=== PATIENT | female | born 1975 | race Caucasian/White ===

== ENCOUNTER → 2017-09-30 | Outpatient (CLI) | payer BC ==
[~2017-09-30] MED LIST: IRON325 MG PO; MOTRIN 600600 MG/TAB PO; PERCOCET 325 MG1 TA2 PO; PRENATAL MVI PO
== END ==
LOC: MC.RAD 07:35
DX: Z12.31 Encounter for screening mammogram for malignant neoplasm of breast (principal)

== ENCOUNTER 2018-10-29 13:48 | Inpatient (IN) | payer BC ==
[~2018-10-29] VITALS: Ht 162.6 cm; Wt 98.2 kg
[2018-10-29] VITALS (399 sets, daily range): BP systolic 120–128; BP diastolic 71–89; PULSE 99–113; TEMP 98.5–99.3; O2SAT 91–100
[2018-10-29 14:11] LABS: BASO # 0.1 (0.0-0.2); BASO % 0.4 % (0.0-2.0); EOS # 0.1 (0.0-0.7); EOS % 0.7 % (0-4.0); GRAN # 13.8 (1.4-6.5); GRAN % 75.9 % (42.2-75.2); LYMPH # 2.6 (1.2-3.4); LYMPH % 14.5 % (20.0-51.0); MEAN CELL VOLUME 77 fl (80.0-100.0); MEAN CORPUSCULAR HGB CONC 31 g/dl (33.0-37.0); MEAN PLATELET VOLUME 8.8 fl (7.4-10.4); MONO # 1.5 (0.1-0.6); MONO % 8.1 % (1.7-9.3); PLATELET COUNT 398 K/mm3 (130-400); RED BLOOD COUNT 4.18 M/mm3 (4.10-5.30); REDCELL DISTRIBUTION WIDTH-CV 14.9 % (11.5-14.5)
[2018-10-29 14:18] LABS: HEMATOCRIT 32.2 % (37.0-47.0); HEMOGLOBIN 9.9 g/dl (12.5-16.0); MEAN CORPUSCULAR HEMOGLOBIN 24 pg (27.0-31.0)
[2018-10-29 14:21] LABS: ALBUMIN 3.9 gm/dL (3.5-5.0); BILIRUBIN,TOTAL 0.4 mg/dL (0.0-1.0); CALCIUM 9.1 mg/dL (8.4-10.2); CREATININE, serum 0.84 (0.52-1.25); POTASSIUM 3.1 mmol/L (3.4-5.0); TOTAL PROTEIN 7.4 gm/dL (6.4-8.2)
[2018-10-29] MEDS ORDERED: HCTZ12.5TAB PO (14:21)
[2018-10-29] MEDS ORDERED: SPRINTEC 35 MCG1 TAB PO (14:21)
[2018-10-29 14:35] LABS: TROPONIN-I 0.075 ng/mL (0.000-0.035)
[2018-10-29 19:17] LABS: TROPONIN-I 6 HR POST INITIAL 0.088 ng/mL (0.000-0.034)
[2018-10-30] VITALS (1006 sets, daily range): BP systolic 113–145; BP diastolic 77–96; PULSE 94–102; TEMP 98.1–99.3; O2SAT 81–100
[2018-10-30 05:02] LABS: BASO % 0.3 % (0.0-2.0); EOS # 0.2 (0.0-0.7); EOS % 1.2 % (0-4.0); GRAN # 7.9 (1.4-6.5); GRAN % 65.3 % (42.2-75.2); LYMPH # 2.7 (1.2-3.4); LYMPH % 22.4 % (20.0-51.0); MEAN CELL VOLUME 77 fl (80.0-100.0); MEAN CORPUSCULAR HGB CONC 30 g/dl (33.0-37.0); MEAN PLATELET VOLUME 8.7 fl (7.4-10.4); MONO # 1.3 (0.1-0.6); MONO % 10.5 % (1.7-9.3); PLATELET COUNT 379 K/mm3 (130-400); RED BLOOD COUNT 3.92 M/mm3 (4.10-5.30); REDCELL DISTRIBUTION WIDTH-CV 15.1 % (11.5-14.5)
[2018-10-30 05:13] LABS: ALBUMIN 3.5 gm/dL (3.5-5.0); BILIRUBIN,TOTAL 0.4 mg/dL (0.0-1.0); CALCIUM 8.6 mg/dL (8.4-10.2); CREATININE, serum 0.75 (0.52-1.25); POTASSIUM 3.5 mmol/L (3.4-5.0)
[2018-10-30 05:15] LABS: HEMATOCRIT 30.3 % (37.0-47.0); HEMOGLOBIN 9.1 g/dl (12.5-16.0); MEAN CORPUSCULAR HEMOGLOBIN 23 pg (27.0-31.0)
[2018-10-31] VITALS (486 sets, daily range): BP systolic 126–131; BP diastolic 64–98; PULSE 84–98; TEMP 97.9–98.1; O2SAT 81–100
[2018-10-31 06:06] LABS: BASO % 0.3 % (0.0-2.0); EOS # 0.3 (0.0-0.7); EOS % 3.3 % (0-4.0); GRAN # 5.8 (1.4-6.5); GRAN % 62.1 % (42.2-75.2); LYMPH # 2.4 (1.2-3.4); LYMPH % 25.2 % (20.0-51.0); MEAN CELL VOLUME 78 fl (80.0-100.0); MEAN CORPUSCULAR HGB CONC 29 g/dl (33.0-37.0); MEAN PLATELET VOLUME 8.5 fl (7.4-10.4); MONO # 0.8 (0.1-0.6); MONO % 8.8 % (1.7-9.3); PLATELET COUNT 366 K/mm3 (130-400); RED BLOOD COUNT 3.85 M/mm3 (4.10-5.30); REDCELL DISTRIBUTION WIDTH-CV 15.1 % (11.5-14.5)
[2018-10-31 06:11] LABS: HEMATOCRIT 30.1 % (37.0-47.0); HEMOGLOBIN 8.8 g/dl (12.5-16.0); MEAN CORPUSCULAR HEMOGLOBIN 23 pg (27.0-31.0)
[2018-10-31 06:24] LABS: POTASSIUM 3.6 mmol/L (3.4-5.0)
[2018-10-31 06:31] LABS: ALBUMIN 3.4 gm/dL (3.5-5.0); BILIRUBIN,TOTAL 0.4 mg/dL (0.0-1.0); CALCIUM 8.4 mg/dL (8.4-10.2); CREATININE, serum 0.77 (0.52-1.25); TOTAL PROTEIN 6.9 gm/dL (6.4-8.2)
[2018-11-01] VITALS: BP 97/46; PULSE 84; TEMP 98.7
[2018-11-01 04:00] VITALS: BP 130/97; PULSE 82; TEMP 98.8
[2018-11-01 05:21] LABS: BASO % 0.3 % (0.0-2.0); EOS # 0.4 (0.0-0.7); EOS % 5.6 % (0-4.0); GRAN # 3.8 (1.4-6.5); GRAN % 54.2 % (42.2-75.2); LYMPH # 2.2 (1.2-3.4); MEAN CELL VOLUME 79 fl (80.0-100.0); MEAN CORPUSCULAR HGB CONC 30 g/dl (33.0-37.0); MEAN PLATELET VOLUME 8.5 fl (7.4-10.4); MONO # 0.6 (0.1-0.6); MONO % 8.5 % (1.7-9.3); PLATELET COUNT 393 K/mm3 (130-400); RED BLOOD COUNT 3.92 M/mm3 (4.10-5.30); REDCELL DISTRIBUTION WIDTH-CV 14.8 % (11.5-14.5); RETIC % 2.5 % (0.5-3.52)
[2018-11-01 05:24] LABS: HEMATOCRIT 30.8 % (37.0-47.0); HEMOGLOBIN 9.1 g/dl (12.5-16.0); MEAN CORPUSCULAR HEMOGLOBIN 23 pg (27.0-31.0)
[2018-11-01 05:37] LABS: CALCIUM 8.7 mg/dL (8.4-10.2); CREATININE, serum 0.74 (0.52-1.25); POTASSIUM 3.6 mmol/L (3.4-5.0)
[2018-11-01 06:28] LABS: IRON,SERUM 26 ug/dL (35-150)
[2018-11-01 06:38] LABS: TOTAL IRON BINDING CAPACITY 406 ug/dL (265-497)
[2018-11-01 07:03] LABS: FERRITIN 14 ng/mL (6-137)
[2018-11-01 09:00] VITALS: BP 128/96; PULSE 87; TEMP 98.5
[2018-11-01 12:00] VITALS: BP 104/48; BP 125/88; PULSE 74; PULSE 83; TEMP 97.8; TEMP 98
[2018-11-01 17:50] VITALS: BP 146/73; PULSE 88; TEMP 98.3
[2018-11-01 20:00] VITALS: BP 154/77; PULSE 79; TEMP 98.2
[2018-11-02] VITALS: BP 128/64; PULSE 87; TEMP 97.7
[2018-11-02 04:00] VITALS: BP 129/78; PULSE 77; TEMP 97.8
[2018-11-02 06:29] LABS: BASO % 0.3 % (0.0-2.0); EOS # 0.5 (0.0-0.7); EOS % 7.2 % (0-4.0); GRAN # 3.4 (1.4-6.5); GRAN % 54.1 % (42.2-75.2); LYMPH # 1.8 (1.2-3.4); LYMPH % 28.4 % (20.0-51.0); MEAN CELL VOLUME 77 fl (80.0-100.0); MEAN CORPUSCULAR HGB CONC 30 g/dl (33.0-37.0); MEAN PLATELET VOLUME 8.7 fl (7.4-10.4); MONO # 0.6 (0.1-0.6); MONO % 9.7 % (1.7-9.3); PLATELET COUNT 383 K/mm3 (130-400); RED BLOOD COUNT 4.12 M/mm3 (4.10-5.30); REDCELL DISTRIBUTION WIDTH-CV 14.6 % (11.5-14.5)
[2018-11-02 06:43] LABS: CALCIUM 8.9 mg/dL (8.4-10.2); CREATININE, serum 0.64 (0.52-1.25); POTASSIUM 4.1 mmol/L (3.4-5.0)
[2018-11-02 06:47] LABS: HEMATOCRIT 31.8 % (37.0-47.0); HEMOGLOBIN 9.5 g/dl (12.5-16.0); MEAN CORPUSCULAR HEMOGLOBIN 23 pg (27.0-31.0)
[2018-11-02] MEDS ORDERED: FERROUS SU325 MG/TAB PO (06:51)
[2018-11-02] MEDS ORDERED: ELIQUIS 5MG PO (06:56)
[2018-11-02 08:00] VITALS: BP 135/83; PULSE 88; TEMP 98.3
== END 2018-11-02 11:38 | disposition home or self-care (01) | DRG 299 ==
LOC: COL.ER 13:48 → ICU 15:39
PROVIDERS: Emergency Medicine; Internal Medicine Critical Care Medicine; Physician Assistant; ADMIT Student in an Organized Health Care Education/Training Program
DX: I82.401 Acute embolism and thrombosis of unspecified deep veins of right lower extremity (principal); J96.01 Acute respiratory failure with hypoxia; I10 Essential (primary) hypertension; E66.9 Obesity, unspecified; Z68.39 Body mass index [BMI] 39.0-39.9, adult; G47.33 Obstructive sleep apnea (adult) (pediatric); D50.9 Iron deficiency anemia, unspecified
CPT/HCPCS: 99222; 99223-AI; 99232-AI; 99233-AI; 99239; J1644; J1650; Q9967

== ENCOUNTER → 2019-01-09 | Outpatient (CLI) | payer BC ==
[~2019-01-09] MED LIST changes: +ELIQUIS 5MG PO; +FERROUS SU325 MG/TAB PO; +HCTZ12.5TAB PO; +SPRINTEC 35 MCG1 TAB PO
== END ==
LOC: COL.RAD 12:36
DX: I26.99 Other pulmonary embolism without acute cor pulmonale (principal); R93.1 Abnormal findings on diagnostic imaging of heart and coronary circulation
CPT/HCPCS: Q9967

== ENCOUNTER → 2020-03-06 | Outpatient (CLI) | payer BC | LOC: MC.RAD 14:39 | DX: Z12.31 Encounter for screening mammogram for malignant neoplasm of breast (principal) ==

== ENCOUNTER → 2021-03-25 | Outpatient (CLI) | payer BC | LOC: MC.RAD 14:36 | DX: Z12.31 Encounter for screening mammogram for malignant neoplasm of breast (principal) ==

== ENCOUNTER 2021-04-23 16:43 | Emergency (ER) | payer BC ==
[~2021-04-23] VITALS: Ht 162.6 cm; Wt 113.6 kg
[2021-04-23] MEDS ORDERED: ASPIRIN 81M81 MG/TA2 PO (16:56)
[2021-04-23 17:13] LABS: COLLECTION METHOD CLEAN CATCH
[2021-04-23 17:33] LABS: AMORPHOUS CRYSTAL Present (NOT PRESENT); MUCOUS Present (NOT PRESENT); PH 7 (5-8); SQUAMOUS EPITHELIAL 0-2 /hpf (0-10); URINE APPEARANCE Turbid (CLEAR/HAZY); URINE BACTERIA None Seen (NONE SEEN); URINE BILIRUBIN Negative (NEGATIVE); URINE BLOOD 1+ (NEGATIVE); URINE COLOR Yellow (YELLOW); URINE GLUCOSE Negative (NEGATIVE); URINE KETONE Negative (NEGATIVE); URINE LEUKOCYTE ESTERASE Negative (NEGATIVE); URINE NITRATE Negative (NEGATIVE); URINE PROTEIN(semi-quant) 2+ (NEGATIVE); URINE UROBILINOGEN Negative (NEGATIVE)
[2021-04-23 17:36] LABS: BASO # 0.1 K/mm3 (0.0-0.2); BASO % 0.5 % (0.0-2.0); EOS # 0.3 K/mm3 (0.0-0.7); EOS % 3.3 % (0.0-4.0); GRAN % 60.4 % (42.2-75.2); HEMATOCRIT 39.8 % (37.0-47.0); HEMOGLOBIN 12.8 g/dl (12.5-16.0); LYMPH # 2.6 K/mm3 (1.2-3.4); LYMPH % 25.6 % (20.0-51.0); MEAN CELL VOLUME 82 fl (80.0-100.0); MEAN CORPUSCULAR HEMOGLOBIN 26 pg (27-31); MEAN CORPUSCULAR HGB CONC 32 g/dl (33.0-37.0); MEAN PLATELET VOLUME 8.5 fl (7.4-10.4); MONO % 9.8 % (1.7-9.3); PLATELET COUNT 354 K/mm3 (130-400); RED BLOOD COUNT 4.86 M/mm3 (4.10-5.30); REDCELL DISTRIBUTION WIDTH-CV 14.3 % (11.5-14.5)
[2021-04-23 17:53] LABS: ALBUMIN 3.8 gm/dL (3.5-5.0); BILIRUBIN,TOTAL 0.2 mg/dL (0.2-1.2); C-REACTIVE PROTEIN 2.23 mg/dL (0.00-0.50); CALCIUM 9.1 mg/dL (8.4-10.2); CREATININE, serum 0.74 mg/dL (0.57-1.11); POTASSIUM 3.8 mmol/L (3.5-4.5); TOTAL PROTEIN 7.9 gm/dL (6.2-8.1)
[2021-04-23 20:52] VITALS: BP 158/93; PULSE 87; TEMP 98.2
== END 2021-04-23 20:57 | disposition home or self-care (01) ==
LOC: COL.ER 16:43
PROVIDERS: Physician Assistant
DX: R10.2 Pelvic and perineal pain (principal); R10.32 Left lower quadrant pain; E66.9 Obesity, unspecified; I10 Essential (primary) hypertension; Z90.710 Acquired absence of both cervix and uterus; Z79.899 Other long term (current) drug therapy; Z68.41 Body mass index [BMI] 40.0-44.9, adult
CPT/HCPCS: J1885; J2270; J7030; Q9967